=== PATIENT | male | born 1995 | race Caucasian/White ===

== ENCOUNTER 2020-12-05 19:35 | Emergency (ER) | payer SELFPAY ==
[~2020-12-05] VITALS: Ht 162.6 cm; Wt 56.8 kg
[2020-12-05 19:44] VITALS: BP 158/58
== END 2020-12-05 20:00 | disposition left against medical advice (07) ==
LOC: EMS 19:39
DX: R10.9 Unspecified abdominal pain (principal); Z53.21 Procedure and treatment not carried out due to patient leaving prior to being seen by health care provider